=== PATIENT | male | born 2005 | race Caucasian/White ===

== ENCOUNTER 2025-07-18 13:20 | Observation (INO) | payer OTHER, SELFPAY ==
[2025-07-18] VITALS (7 sets, daily range): BP systolic 118–161; BP diastolic 66–85; PULSE 82–93; RESP 16–18; TEMP 36.4–36.7; O2SAT 96–100; BMI 35.2; BMI 35.7
[2025-07-18 13:39] LABS: Microscopic, Urine URINE MICROSCOPIC (MICROSCOPIC)
--- NOTE | 2025-07-18 13:40 | CT_ITS ---
FINAL REPORT TECHNIQUE: Thin section axial images were obtained through the abdomen after intravenous contrast. Reconstruction images were obtained from the axial data. Exam was performed using dose reduction techniques. CLINICAL HISTORY: rlq pain FINDINGS: The lung bases are clear. The liver is homogeneous. The gallbladder is present. The spleen, adrenal glands, and pancreas are unremarkable. There is a small hypodense lesion in the upper pole of the right kidney, likely a cyst. There are mildly prominent small bowel loops in the mid abdomen. There is an umbilical hernia containing loops of small bowel. The transition point to decompressed the distal small bowel loops is at the hernia. There is no abdominal lymphadenopathy or ascites. The appendix is normal. There is a right inguinal hernia. There is no pelvic lymphadenopathy or ascites. No acute osseous abnormalities identified. IMPRESSION: Umbilical hernia containing loops of small bowel. There appears to be an associated low grade small bowel obstruction related to the hernia. Reviewed, Interpreted and Dictated by Nora Rodgers MD Transcribed by Betina Trent Authenticated and [facility]
[2025-07-18 13:41] LABS: Bilirubin,Urine Negative (Negative); Color,Urine YELLOW (Yellow); Glucose,Urine (UA) Negative (Negative); Ketones,Urine Negative (Negative); Leukocyte Esterase,Urine Negative (Negative); PH,Urine 7.0 (5.0-8.5); Protein,Urine Negative (Negative); Specific Gravity, Urine 1.015 (1.005-1.030); Urobilinogen,Urine 0.2 EU/dl (0.2)
--- NOTE | 2025-07-18 13:41 | ED_ITS ---
Discharge Plan Disposition Patient Disposition: Admitted Condition: Good Clinical Impressions Clinical Impression: Bowel obstruction, Direct hyperbilirubinemia Discharge ED Provider: Guerda Peralta Adult HPI General Chief complaint: Abdominal Pain Stated complaint: Lower Right stomach pain, vomiting Time Seen by Provider: 07/18/25 13:24 Mode of Arrival: Ambulatory Source of Information: Patient Description of Symptoms (Recalled from ER Triage Doc. by RN): Patient states he was lifting something heavy this morning around 1000 and then started having lower abdominal pain and then afterwards vomiting and diarrhea. History of Present Illness HPI narrative: Patient is a 20-year-old male with no past medical history who presented to the emergency department with right sided abdominal pain that started at 1045 this morning. Patient states that it started acutely patient states he had a couple episodes of vomiting no diarrhea no other associated symptoms. Patient has not had a bowel movement since this occurred. Patient denies any prior abdominal surgeries. Patient does not take any daily medications. Patient denies any fevers or other upper respiratory symptoms. Patient denies any chest pain or shortness of breath. Patient denies any testicular pain or lower groin pain. Related Data Allergies Allergy/AdvReac Type Severity Reaction Status Date / Time No Known Allergies Allergy Verified 07/18/25 13:34 [facility] Disclaimer: The information contained in this section may have been updated after the patient was seen, as this information can be updated by other users. Social History Smoking Status: Never smoker alcohol intake: never current occupational status: other Travel in the last 8 weeks?: None ROS Obtained: Yes All systems reviewed & no additional complaints except as documented and Yes Systems reviewed as appropriate & no additional complaints except as documented Physical Exam General General appearance: alert and in no apparent distress Head Head exam: atraumatic, normocephalic and normal inspection Eye Eye exam: Present normal appearance, PERRL and EOMI; Absent scleral icterus ENT ENT exam: Present normal exam and normal external ear exam Neck Neck exam: Present normal inspection and full ROM Chest Chest inspection: Present normal inspection and symmetric chest wall rise Respiratory Respiratory exam: Present normal lung sounds bilaterally; Absent respiratory distress or wheezes Cardiovascular Cardiovascular exam: Present regular rate, normal rhythm and normal heart sounds Abdominal Exam Abdominal exam: Present soft, distention and other (umbilical hernia noted, right abdominal tenderness); Absent tenderness, guarding or rebound Extremities Exam Extremities exam: Present normal inspection and full ROM Back Exam Back exam: Present normal inspection and full ROM Neurological Exam Neurological exam: Present alert and oriented X3 Psychiatric Psychiatric exam: Present normal affect and normal mood Skin Skin exam: Present warm and dry Medical Decision Making Medical Records Medical records reviewed: Yes I reviewed the patient's medical records. Screening: Per USPSTF and CDC recommendations, given the prevalence of disease in our region, it is our hospital?s policy to screen for HIV and viral Hepatitis for all patients aged 18 and over and those with ongoing risk factors. [place] Inquiry Pt receiving controlled substance: No Vital Signs: 07/18/25 13:30 07/18/25 14:00 07/18/25 14:30 Temperature 97.9 F Temperature Source Oral Pulse Rate 82 92 H Pulse Rate [Right Brachial] 88 Respiratory Rate 16 Blood Pressure 144/77 H 154/85 H Blood Pressure [Right Arm] 161/85 H Blood Pressure Mean 108 Blood Pressure Mean [Right Arm] 110 Blood Pressure Source Blood Pressure Source [Right Arm] Automatic Cuff Blood Pressure Position Blood Pressure Position [Right Arm] Sitting 02 Sat by Pulse Oximetry 100 99 98 Oxygen Delivery Method Room Air 07/18/25 15:00 07/18/25 16:49 Temperature 97.9 F Temperature Source Oral Pulse Rate 82 82 Pulse Rate [Right Brachial] Respiratory Rate 16 Blood Pressure 136/66 136/66 Blood Pressure [Right Arm] Blood Pressure Mean 89 Blood Pressure Mean [Right Arm] Blood Pressure Source Automatic Cuff Blood Pressure Source [Right Arm] Blood Pressure Position Sitting Blood Pressure Position [Right Arm] 02 Sat by Pulse Oximetry 96 Oxygen Delivery Method Room Air Lab Data Lab results reviewed: Yes I reviewed the patient's lab results. Lab Results 07/18/25 13:30: Urine Color Yellow, Urine Appearance Clear, Urine pH 7.0, Ur Specific [place] 1.015, Urine Protein Negative, Urine Glucose (UA) Negative, Urine Ketones Negative, Urine Blood Negative, Urine Nitrate Negative, Urine Bilirubin Negative, Urine Urobilinogen 0.2, Ur Leukocyte Esterase Negative, Urine RBC None, Urine WBC None, Ur Squamous Epith Cells None, Urine Bacteria None 07/18/25 13:33: WBC 7.3, RBC 5.37, Hgb 15.6, Hct 45.7, MCV 85.1, MCH 29.1, MCHC 34.1, RDW 12.2, Plt Count 236, MPV 9.7, Neut % (Auto) 71.4, Lymph % (Auto) 21.5, [place] % (Auto) 5.8, Eos % (Auto) 0.3, Baso % (Auto) 0.4, Neut # (Auto) 5.2, Lymph # (Auto) 1.6, [place] # (Auto) 0.4, Eos # (Auto) 0.0, Baso # (Auto) 0.0, Retic Count (auto) 2.3, Sodium 146 H, Potassium 3.9, Chloride 102, Carbon Dioxide 29, Anion Gap 18.9 H, BUN 16, Creatinine 1.00, Estimated Creat Clear 167, Estimated GFR 93, Est GFR ( Amer) 113, Glucose 106 H, Calcium 9.8, Total Bilirubin 6.1 H, Direct Bilirubin 0.3, AST 26, ALT 54, Alkaline Phosphatase 78, Total Protein 7.9, Albumin 5.0, Globulin 2.9, Albumin/Globulin Ratio 1.7, Lipase 60, HCV Ab RENÉE w/Rflx PCR Qn Negative, HIV Ag/Ab Combo Qual Negative 07/18/25 13:33 07/18/25 13:33 Orders (Tests/Meds): ED MEDICATIONS Generic Name Dose Route Start Last Admin Trade Name Freq PRN Reason Stop Dose Admin Acetaminophen 650 mg 07/18/25 16:28 Acetaminophen 325mg Tab PO 08/17/25 16:27 Q4HP PRN Fever or Mild Pain (1-3) Ondansetron HCl 4 mg 07/18/25 16:28 Ondansetron 4mg/2ml Vial IV 08/17/25 16:27 Q8HP PRN Nausea Sodium Chloride 10 ml 07/18/25 13:51 07/18/25 13:52 Sodium Chloride 0.9% 10ml Syr (Rad Only) IV 08/17/25 13:50 10 ml NEEDED PRN Administration Maintain IV Site Discontinued Medications Generic Name Dose Route Start Last Admin Trade Name Freq PRN Reason Stop Dose Admin Iopamidol 75 ml 07/18/25 13:51 07/18/25 13:52 Iopamidol-370 (76%);100ml Bottle IV 07/18/25 13:52 75 ml ONCE ONE Administration Ketorolac Tromethamine 30 mg 07/18/25 13:41 07/18/25 13:46 Ketorolac 30mg/Ml Vial IV 07/18/25 13:42 30 mg ONCE ONE Administration Ondansetron HCl 4 mg 07/18/25 13:41 07/18/25 13:46 Ondansetron 4mg/2ml Vial IV 07/18/25 13:42 4 mg ONCE ONE Administration ORDERS Category Date Time Status CT abdomen pelvis w con Stat Cat Scan 07/18/25 13:40 Completed Bilirubin,Direct Stat Lab 07/18/25 13:33 Completed Complete Blood Count Auto Diff AMLAB Lab 07/19/25 06:00 Ordered Complete Blood Count Auto Diff Stat Lab 07/18/25 13:33 Completed Comprehensive Metabolic Panel AMLAB Lab 07/19/25 06:00 Ordered Comprehensive Metabolic Panel Stat Lab 07/18/25 13:33 Completed HIV Combo Stat Lab 07/18/25 13:33 Completed Hepatitis C Ab Qual. W/ RFX Stat Lab 07/18/25 13:33 Completed Lipase Stat Lab 07/18/25 13:33 Completed Magnesium AMLAB Lab 07/19/25 06:00 Ordered Reticulocyte % (Auto) Stat Lab 07/18/25 13:33 Completed Urinalysis and Microscopic Stat Lab 07/18/25 13:30 Completed Medical Decision Narrative: Patient is an otherwise healthy 20-year-old male who presented to the emergency department with acute onset right sided abdominal pain. On arrival, patient was hemodynamically stable with unremarkable vital signs. Differential includes but not limited to: Gastroenteritis, hernia, bowel obstruction, appendicitis, amongst others. On exam, patient did have an umbilical hernia, patient had some right sided abdominal tenderness exam was otherwise unremarkable. Patient's labs were reviewed and interpreted by myself: CBC showed no leukocytosis, hemoglobin was stable. CMP was unremarkable. UA was negative for signs of infection. CT scan was obtained of the abdomen which showed umbilical hernia with low-grade bowel obstruction. I went to bedside and patient's umbilical hernia was able to be reduced by myself therefore low concern for incarcerated or strangulated hernia. Given concern for bowel obstruction secondary to umbilical hernia, I consulted hospital medicine and patient was ultimately admitted for further observation for p.o. challenge and ability to have a bowel movement. Patient was otherwise admitted in stable condition. Critical Care Critical Care Time Critical Care Time: No
[2025-07-18 13:42] LABS: Hematocrit 45.7 % (42.0-52.0); Hemoglobin 15.6 g/dL (14.1-18.0); Immature Granulocytes % 0.6 %; Mean Corpuscular HGB Conc 34.1 g/dL (31.8-35.4); Mean Corpuscular Hemoglobin 29.1 pg (27.0-31.2); Mean Corpuscular Volume 85.1 fl (80-94); Nucleated Red Blood Cells % 0 %; Platelet Count 236 K/mm3 (142-424); Red Blood Count 5.37 M/mm3 (4.60-6.20); Red Cell Distribution Width-SD 37.7 fL; White Blood Count 7.3 K/mm3 (4.8-10.8)
[2025-07-18] MEDS: KETOROLAC 30MG/ML VIAL 30 MG IV (13:46)
[2025-07-18] MEDS: ONDANSETRON 4MG/2ML VIAL 4 MG IV (13:46)
[2025-07-18 13:48] LABS: Albumin Level 5.0 g/dl (3.5-5.0); Chloride 102 mmol/L (98-107); Sodium 146 mmol/L (136-145)
[2025-07-18 13:49] LABS: Potassium 3.9 mmoL/L (3.5-5.1)
[2025-07-18 13:51] LABS: Alanine Aminotransferase 54 U/L (12-78); Albumin/Globulin Ratio 1.7 (1.1-1.8); Alkaline Phosphatase 78 U/L (38-126); Anion Gap 18.9 mEq/L (5-15); Aspartate Amino Transferase 26 U/L (17-59); Bilirubin,Total 6.1 mg/dl (0.2-1.3); Blood Urea Nitrogen 16 mg/dl (9-20); Calcium 9.8 mg/dl (8.4-10.2); Carbon Dioxide 29 mmol/L (22.0-30.0); Creatinine Clearance Estimated 167 mL/min (50-200); Creatinine,Serum 1.00 mg/dl (0.66-1.25); Estimated Glomerular Filt Rate 93 ml/min (>60); GFR (African American) 113 ML/MIN (>60); Globulin 2.9 g/dL (1.3-3.2); Glucose 106 mg/dl (74-100); Lipase 60 U/L (23-300); Total Protein,Serum 7.9 g/dl (6.3-8.2)
[2025-07-18] MEDS: IOPAMIDOL-370 (76%);100ML BOTTLE 75 ML IV (13:52)
[2025-07-18] MEDS: SODIUM CHLORIDE 0.9% 10ML SYR (RAD ONLY) 10 ML IV (13:52)
[2025-07-18 14:59] LABS: Hepatitis C Ab Qual. W/ RFX NEGATIVE (Negative)
[2025-07-18 15:30] LABS: Reticulocyte % (Auto) 2.3 % (0.9-3.2)
[2025-07-18 15:31] LABS: Bilirubin,Direct 0.3 mg/dl (0.0-0.4)
--- NOTE | 2025-07-18 16:48 | EXP.HP ---
History of Present Illness *Admission Date: 07/18/25 *Reason for visit:: abdominal pain *History of present illness: 20-year-old male with no significant medical history who presents with onset of abdominal pain this morning. States he was at work doing heavy lifting. Had onset of abdominal pain which caused him to come to the ER for evaluation. On evaluation, CT showed umbilical hernia with small bowel and low-grade SBO. Hernia was reduced in the ER with improvement in his pain. Patient has not passed any gas however had bowel movement since reduction. Given the severity of symptoms and improvement with manual reduction, ER requested admission for monitoring overnight and advancement of diet to make sure he does not have any further bowel obstruction. On my evaluation, patient has no abdominal pain at this time. Bowel sounds are hypoactive. States he had a bowel movement earlier this morning. Denies chest pain or shortness of breath. Of note, his labs were significant for bilirubin of 6. White count otherwise normal at 7.3, hemoglobin 15.6. Kidney function normal with BUN 16, creatinine 1. Of note, he reports having had similar episode few months ago (approximately 4 months ago) for which he went to sleep and slept on his stomach. States that when he woke up the pain was gone. [facility] Disclaimer: The information contained in this section may have been updated after the patient was seen, as this information can be updated by other users. Social History (Updated 07/18/25 @ 17:46 by Guerda Peralta DO) Smoking Status: Never smoker alcohol intake: never current occupational status: other Travel in the last 8 weeks?: None Have you lived/traveled outside [place] in past 30 days?: No Contact w/someone who lives/traveled outside [place] past 30 days?: No Exposure to someone with infectious disease in past 14 days?: No Do you have a fever (greater than 100.4 F or 38 C)?: No Have you tested positive for COVID-19?: No Exposed to someone with COVID-19 in past 14 days?: No Do you have a sore throat?: No Do you have a cough?: No Do you have any weakness?: No Do you have any diarrhea?: No Are you experiencing any unusual bleeding?: No Do you have any muscle aches/pain?: No Do you have any abdominal pain?: Yes Are you experiencing loss of taste or smell?: No Review of Systems Review of Systems Review of systems (narrative): 14 point review of systems performed, pertinent positives and negatives as per HPI Meds Home Medications and Allergies Home Medications ?Medication ?Instructions ?Recorded ?Confirmed ?Type No Known Home Medications 07/18/25 07/18/25 History New Prescriptions to Start Prescriptions: Allergies Allergy/AdvReac Type Severity Reaction Status Date / Time No Known Allergies Allergy Verified 07/18/25 13:34 Exam Data for Last 24 hours Vital signs and Labs for Last 24 Hours: Temp Pulse Resp BP Pulse Ox O2 Del Method 97.9 F 82 16 136/66 96 Room Air 07/18/25 13:30 07/18/25 15:00 07/18/25 13:30 07/18/25 15:00 07/18/25 15:00 07/18/25 13:30 Laboratory Results - last 24 hr 07/18/25 13:30: Urine Color Yellow, Urine Appearance Clear, Urine pH 7.0, Ur Specific [place] 1.015, Urine Protein Negative, Urine Glucose (UA) Negative, Urine Ketones Negative, Urine Blood Negative, Urine Nitrate Negative, Urine Bilirubin Negative, Urine Urobilinogen 0.2, Ur Leukocyte Esterase Negative, Urine RBC None, Urine WBC None, Ur Squamous Epith Cells None, Urine Bacteria None 07/18/25 13:33: WBC 7.3, RBC 5.37, Hgb 15.6, Hct 45.7, MCV 85.1, MCH 29.1, MCHC 34.1, RDW 12.2, Plt Count 236, MPV 9.7, Neut % (Auto) 71.4, Lymph % (Auto) 21.5, [place] % (Auto) 5.8, Eos % (Auto) 0.3, Baso % (Auto) 0.4, Neut # (Auto) 5.2, Lymph # (Auto) 1.6, [place] # (Auto) 0.4, Eos # (Auto) 0.0, Baso # (Auto) 0.0, Retic Count (auto) 2.3, Sodium 146 H, Potassium 3.9, Chloride 102, Carbon Dioxide 29, Anion Gap 18.9 H, BUN 16, Creatinine 1.00, Estimated Creat Clear 167, Estimated GFR 93, Est GFR ( Amer) 113, Glucose 106 H, Calcium 9.8, Total Bilirubin 6.1 H, Direct Bilirubin 0.3, AST 26, ALT 54, Alkaline Phosphatase 78, Total Protein 7.9, Albumin 5.0, Globulin 2.9, Albumin/Globulin Ratio 1.7, Lipase 60, HCV Ab RENÉE w/Rflx PCR Qn Negative, HIV Ag/Ab Combo Qual Negative I & O for Last 24 hours: Intake & Output 07/15/25 07/16/25 07/17/25 07/18/25 23:59 23:59 23:59 23:59 Weight 102.058 kg Constitutional Constitutional: no acute distress, obese and cooperative *Routine HEENT Exam Head: Present normocephalic Eye: Present EOMI and PERRL ENT: Present mucous membranes moist *Routine Neck Exam Neck: Present supple; Absent lymphadenopathy *Routine Respiratory Exam Respiratory: Present CTA bilaterally; Absent rhonchi or wheezes *Routine Cardiovascular Exam Cardiovascular: Present RRR *Routine Abdominal Exam Abdominal: Present soft and normoactive bowel sounds; Absent tenderness or distended Comments: Palpable defect around umbilicus. No appreciable hernia or protrusion at this time; abdomen nontender *Routine Rectal Exam Rectal:: deferred *Routine Genitalia Exam Genitalia:: deferred *Routine Extremities Exam Extremities: Absent cyanosis, clubbing or edema *Routine Skin Exam Skin: Present warm; Absent rash *Routine Neurological Exam Neurological: Present alert, oriented X3 and moving all extremities; Absent altered mental status Assessment and Plan *Assessment and plan (1) Umbilical hernia: Status: Acute Category: Medical Code(s): K42.9 - Umbilical hernia without obstruction or gangrene (2) Direct hyperbilirubinemia: Status: Acute Category: Medical Code(s): E80.6 - Other disorders of bilirubin metabolism (3) Bowel obstruction: Status: Acute Category: Medical Code(s): K56.609 - Unspecified intestinal obstruction, unspecified as to partial versus complete obstruction Plan 20-year-old male who presented with acute onset of abdominal pain. Found to have umbilical hernia. Reduce successfully in the ER. Discussed case with ER physician, request admission for monitoring of bowel function and advancement of diet given identification of SBO on CT of abdomen pelvis. I agreed to admit for further management overnight and advancement of diet. Problems addressed as follows: Umbilical hernia Low-grade SBO Hyperbilirubinemia - Hernia present on presentation. Successfully reduced in the ER. No residual pain or discomfort. Did have bowel movement this morning however has not passed gas or had bowel movement since reduction of hernia. - Per my review of CT of abdomen, had small amount of bowel protruding through umbilical defect and abdominal wall. No significant stranding or edema - Advance diet. Zofran 4 mg as needed IV every 6 hours as he did for nausea. - Toradol 30 mg given in the ER. Continue Tylenol 650 mg every 4 hours as needed for pain - White count normal at 7.3, hemoglobin 15.6. Kidney function normal with BUN 16, creatinine 1. - Bilirubin elevated at 6, unclear specific etiology; direct of 0.3. No jaundice on exam. Suspect secondary to his hernia and obstruction. Will repeat labs in the morning to monitor for resolution with repeat CBC, CMP, magnesium ordered for the morning. Remainder of liver enzymes otherwise normal. Full code Regular diet
--- NOTE | 2025-07-18 17:02 | PC.NURSE ---
arrived by w/c from ED
[2025-07-19 04:00] VITALS: BP 140/70; PULSE 85; RESP 16; TEMP 36.6; O2SAT 98; BMI 35.9
--- NOTE | 2025-07-19 07:25 | EXP.DC.SUM ---
General Admission date:: 07/18/25 Discharge date: 07/19/25 HPI HPI HPI: 20-year-old male with no significant medical history who presents with onset of abdominal pain this morning. States he was at work doing heavy lifting. Had onset of abdominal pain which caused him to come to the ER for evaluation. On evaluation, CT showed umbilical hernia with small bowel and low-grade SBO. Hernia was reduced in the ER with improvement in his pain. Patient has not passed any gas however had bowel movement since reduction. Given the severity of symptoms and improvement with manual reduction, ER requested admission for monitoring overnight and advancement of diet to make sure he does not have any further bowel obstruction. On my evaluation, patient has no abdominal pain at this time. Bowel sounds are hypoactive. States he had a bowel movement earlier this morning. Denies chest pain or shortness of breath. Of note, his labs were significant for bilirubin of 6. White count otherwise normal at 7.3, hemoglobin 15.6. Kidney function normal with BUN 16, creatinine 1. Of note, he reports having had similar episode few months ago (approximately 4 months ago) for which he went to sleep and slept on his stomach. States that when he woke up the pain was gone. Hospital Course Hospital Course Hospital Course: 20-year-old male who presented with acute onset of abdominal pain. Found to have umbilical hernia. Reduce successfully in the ER. Discussed case with ER physician, request admission for monitoring of bowel function and advancement of diet given identification of SBO on CT of abdomen pelvis. I agreed to admit for further management overnight and advancement of diet. Patient tolerated p.o. intake. Had a bowel movement. No pain since admission. Stable discharge home. Problems addressed as follows: Umbilical hernia Low-grade SBO Hyperbilirubinemia - Hernia present on presentation. Successfully reduced in the ER. No residual pain or discomfort. Did have bowel movement this morning however has not passed gas or had bowel movement since reduction of hernia. Per my review of CT of abdomen, had small amount of bowel protruding through umbilical defect and abdominal wall. No significant stranding or edema. Advance to regular diet. Patient did well overnight with no nausea or vomiting. Tolerating p.o. intake. Had a bowel movement. No pain. Remained stable. Labs normal. Hemoglobin stable. Bilirubin improved from 6-3 prior to discharge. Suspect secondary to his hernia and obstruction with possible recirculation. May also have a component of [place]. No jaundice during admission. No abdominal pain or right upper quadrant pain. Remainder of liver enzymes normal. Would encourage repeat labs in 1 to 2 months to monitor for resolution. Encourage patient to establish with PCP. Encouraged him to follow with general surgery if has recurrence of his hernia as he may need repair of umbilical defect. Otherwise stable to discharge home. Exam Data for Last 24 hours Vital signs and Labs for Last 24 Hours: Temp Pulse Resp BP Pulse Ox O2 Del Method 97.8 F 85 16 140/70 98 Room Air 07/19/25 04:00 07/19/25 04:00 07/19/25 04:00 07/19/25 04:00 07/19/25 04:00 07/19/25 06:12 Laboratory Results - last 24 hr 07/18/25 13:30: Urine Color Yellow, Urine Appearance Clear, Urine pH 7.0, Ur Specific [place] 1.015, Urine Protein Negative, Urine Glucose (UA) Negative, Urine Ketones Negative, Urine Blood Negative, Urine Nitrate Negative, Urine Bilirubin Negative, Urine Urobilinogen 0.2, Ur Leukocyte Esterase Negative, Urine RBC None, Urine WBC None, Ur Squamous Epith Cells None, Urine Bacteria None 07/18/25 13:33: WBC 7.3, RBC 5.37, Hgb 15.6, Hct 45.7, MCV 85.1, MCH 29.1, MCHC 34.1, RDW 12.2, Plt Count 236, MPV 9.7, Neut % (Auto) 71.4, Lymph % (Auto) 21.5, [place] % (Auto) 5.8, Eos % (Auto) 0.3, Baso % (Auto) 0.4, Neut # (Auto) 5.2, Lymph # (Auto) 1.6, [place] # (Auto) 0.4, Eos # (Auto) 0.0, Baso # (Auto) 0.0, Retic Count (auto) 2.3, Sodium 146 H, Potassium 3.9, Chloride 102, Carbon Dioxide 29, Anion Gap 18.9 H, BUN 16, Creatinine 1.00, Estimated Creat Clear 167, Estimated GFR 93, Est GFR ( Amer) 113, Glucose 106 H, Calcium 9.8, Total Bilirubin 6.1 H, Direct Bilirubin 0.3, AST 26, ALT 54, Alkaline Phosphatase 78, Total Protein 7.9, Albumin 5.0, Globulin 2.9, Albumin/Globulin Ratio 1.7, Lipase 60, HCV Ab RENÉE w/Rflx PCR Qn Negative, HIV Ag/Ab Combo Qual Negative I & O for Last 24 hours: Intake & Output 07/16/25 07/17/25 07/18/25 07/19/25 23:59 23:59 23:59 23:59 Output Total 0 / 0 0 / 0 Balance 0 / 0 0 / 0 Weight 103.504 kg 103.963 kg Constitutional Constitutional: no acute distress *Routine HEENT Exam Head: Present normocephalic Eye: Present EOMI and PERRL ENT: Present mucous membranes moist *Routine Neck Exam Neck: Present supple; Absent lymphadenopathy *Routine Respiratory Exam Respiratory: Present CTA bilaterally *Routine Cardiovascular Exam Cardiovascular: Present RRR *Routine Abdominal Exam Abdominal: Present soft and normoactive bowel sounds; Absent tenderness Comments: Small defect in umbilical region. No palpable hernia *Routine Rectal Exam Patient deferred: visual exam *Routine Exam Patient deferred: penile exam *Routine Extremities Exam Extremities: Absent cyanosis, clubbing or edema *Routine Skin Exam Skin: Present warm; Absent rash *Routine Neurological Exam Neurological: Present alert, oriented X3 and moving all extremities; Absent altered mental status Results Data Completed and Pending Labs on day of discharge: Labs from last 24 hours 07/18/25 07/18/25 13:33 13:30 WBC 7.3 RBC 5.37 Hgb 15.6 Hct 45.7 MCV 85.1 MCH 29.1 MCHC 34.1 RDW 12.2 Plt Count 236 MPV 9.7 Neut % (Auto) 71.4 Lymph % (Auto) 21.5 [place] % (Auto) 5.8 Eos % (Auto) 0.3 Baso % (Auto) 0.4 Neut # (Auto) 5.2 Lymph # (Auto) 1.6 [place] # (Auto) 0.4 Eos # (Auto) 0.0 Baso # (Auto) 0.0 Retic Count (auto) 2.3 Sodium 146 H Potassium 3.9 Chloride 102 Carbon Dioxide 29 Anion Gap 18.9 H BUN 16 Creatinine 1.00 Estimated Creat Clear 167 Estimated GFR 93 Est GFR ( Amer) 113 Glucose 106 H Calcium 9.8 Total Bilirubin 6.1 H Direct Bilirubin 0.3 AST 26 ALT 54 Alkaline Phosphatase 78 Total Protein 7.9 Albumin 5.0 Globulin 2.9 Albumin/Globulin Ratio 1.7 Lipase 60 Urine Color Yellow Urine Appearance Clear Urine pH 7.0 Ur Specific [place] 1.015 Urine Protein Negative Urine Glucose (UA) Negative Urine Ketones Negative Urine Blood Negative Urine Nitrate Negative Urine Bilirubin Negative Urine Urobilinogen 0.2 Ur Leukocyte Esterase Negative Urine RBC None Urine WBC None Ur Squamous Epith Cells None Urine Bacteria None HCV Ab RENÉE w/Rflx PCR Qn Negative HIV Ag/Ab Combo Qual Negative DS: Diagnosis Discharge Diagnosis (1) Umbilical hernia: Status: Acute Code(s): K42.9 - Umbilical hernia without obstruction or gangrene (2) Direct hyperbilirubinemia: Status: Acute Code(s): E80.6 - Other disorders of bilirubin metabolism (3) Bowel obstruction: Status: Acute Code(s): K56.609 - Unspecified intestinal obstruction, unspecified as to partial versus complete obstruction Meds Home Medications and Allergies Home Medications ?Medication ?Instructions ?Recorded ?Confirmed ?Type No Known Home Medications 07/18/25 07/18/25 History New Prescriptions to Start Prescriptions: Allergies Allergy/AdvReac Type Severity Reaction Status Date / Time No Known Allergies Allergy Verified 07/18/25 13:34 Discharge Plan Disposition Patient Disposition: Home, Self-Care Condition: Good Follow up Plan Follow up with: ProviderNighat MD [Primary Care Provider, Medical] - Enter time for follow up Referral Note: Call Wednesday to make follow up appointment. Santiago Head MD [Staff Physician, General Surgery] - Enter time for follow up Referral Note: Call Wednesday to make follow up appointment. Prescriptions/Medication Reconciliation: No Action No Known Home Medications Problem Reconciliation Problems Reviewed?: Yes Patient Discharge Instructions ACTIVITY: Continue current activity DIET: continue same diet Patient Instructions: Hernias: Causes and Treatment Options, DI for Small Bowel Obstruction Print Language: [place] Providers Primary Care Provider: Provider,Referral Admit Provider: Neo Trujillo Attending Provider: Neo Trujillo
[2025-07-19 07:35] LABS: Hematocrit 42.4 % (42.0-52.0); Hemoglobin 14.5 g/dL (14.1-18.0); Immature Granulocytes % 0.3 %; Mean Corpuscular HGB Conc 34.2 g/dL (31.8-35.4); Mean Corpuscular Hemoglobin 29.4 pg (27.0-31.2); Mean Corpuscular Volume 85.8 fl (80-94); Nucleated Red Blood Cells % 0 %; Platelet Count 217 K/mm3 (142-424); Red Blood Count 4.94 M/mm3 (4.60-6.20); Red Cell Distribution Width-SD 38.4 fL; White Blood Count 5.9 K/mm3 (4.8-10.8)
[2025-07-19 07:46] VITALS: BP 118/77; PULSE 99; RESP 17; TEMP 36.7; O2SAT 96
[2025-07-19 07:46] LABS: Alanine Aminotransferase 44 U/L (12-78); Albumin Level 4.3 g/dl (3.5-5.0); Albumin/Globulin Ratio 1.8 (1.1-1.8); Alkaline Phosphatase 70 U/L (38-126); Anion Gap 11.1 mEq/L (5-15); Aspartate Amino Transferase 26 U/L (17-59); Bilirubin,Total 3.4 mg/dl (0.2-1.3); Blood Urea Nitrogen 15 mg/dl (9-20); Calcium 9.6 mg/dl (8.4-10.2); Carbon Dioxide 23 mmol/L (22.0-30.0); Chloride 106 mmol/L (98-107); Creatinine Clearance Estimated 189 mL/min (50-200); Creatinine,Serum 0.90 mg/dl (0.66-1.25); Estimated Glomerular Filt Rate 106 ml/min (>60); GFR (African American) 128 ML/MIN (>60); Globulin 2.4 g/dL (1.3-3.2); Glucose 101 mg/dl (74-100); Magnesium 2.0 mg/dl (1.6-2.3); Potassium 4.1 mmoL/L (3.5-5.1); Sodium 136 mmol/L (136-145); Total Protein,Serum 6.7 g/dl (6.3-8.2)
--- NOTE | 2025-07-23 11:11 | SW/DCPLANNER ---
Spoke with patient on the phone. Patient stated that he is doing well and having no pain. Patient stated that he is not aware of his upcoming appointments. Patient stated that he was not prescribed any new medicine. Patient stated that he has no concerns or questions at this time. Orlando Del Rosario
== END 2025-07-19 08:50 | disposition home or self-care (01) ==
LOC: ER 16:29 → 2ND 16:40
PROVIDERS: Admitting Provider Internal Medicine Adolescent Medicine; Emergency Provider Student in an Organized Health Care Education/Training Program; Visit Provider Internal Medicine Adolescent Medicine
DX: K42.9 Umbilical hernia without obstruction or gangrene (principal); E80.6 Other disorders of bilirubin metabolism; K56.609 Unspecified intestinal obstruction, unspecified as to partial versus complete obstruction
CPT/HCPCS: 36415; 74177; 80053; 81001; 82248; 83690; 83735; 85025; 85044; 86803; 87389; 96374; 96375; 99285; G0378; J1885; J2405; Q9967